=== PATIENT | female | born 1990 | race Caucasian/White ===

== ENCOUNTER 2018-10-18 11:44 | Emergency (ER) | payer OTHER, MEDICAID ==
[2018-10-18 11:53] VITALS: BP 103/70; PULSE 91; RESP 18; TEMP 98.5; O2SAT 98
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
== END 2018-10-18 12:11 | disposition home or self-care (01) ==
LOC: C.ER 11:51
DX: T14.8XXA Other injury of unspecified body region, initial encounter (principal); V49.40XA Driver injured in collision with unspecified motor vehicles in traffic accident, initial encounter